=== PATIENT | female | born 1945 | race Caucasian/White ===

== ENCOUNTER → 2017-08-11 | Outpatient (CLI) | payer MEDICARE ==
[~2017-08-11] MED LIST: ASPI325 PO; LISI20 PO; LISI5 PO; METO100ER PO; METO50ER PO; Tambocor100 MG PO; WARF4 PO; WARF6; WARF7.5 PO; [UNRECOGNIZED DRUG - OTHER]
== END | disposition home or self-care (01) ==
LOC: LAB SHORT 07:47 → PLD 07:47
DX: D18.01 Hemangioma of skin and subcutaneous tissue (principal)
CPT/HCPCS: 88305

== ENCOUNTER 2017-10-03 10:33 | Emergency (ER) | payer MEDICARE ==
[~2017-10-03] VITALS: Ht 165.1 cm; Wt 76.2 kg
[2017-10-03] MEDS ORDERED: LISI20 PO (10:52)
[2017-10-03] MEDS ORDERED: METO100ER PO (10:52)
[2017-10-03] MEDS ORDERED: WARF6 PO (10:53)
[2017-10-03] MEDS ORDERED: Flecainide Ace150 MG PO (10:53)
== END 2017-10-03 12:54 | disposition home or self-care (01) ==
LOC: ER 10:33
DX: R13.10 Dysphagia, unspecified (principal); I48.91 Unspecified atrial fibrillation; Z91.013 Allergy to seafood; Z91.09 Other allergy status, other than to drugs and biological substances; Z79.899 Other long term (current) drug therapy; Z79.01 Long term (current) use of anticoagulants
CPT/HCPCS: 74220

== ENCOUNTER → 2019-01-05 | Outpatient (CLI) | payer MEDICARE ==
[~2019-01-05] MED LIST changes: +Flecainide Ace150 MG PO; +WARF6 PO
== END | disposition home or self-care (01) ==
LOC: PLD 10:08 → LAB SHORT 10:08
DX: D48.5 Neoplasm of uncertain behavior of skin (principal)
CPT/HCPCS: 88305

== ENCOUNTER → 2019-01-20 | Outpatient (CLI) | payer MEDICARE | END | disposition home or self-care (01) | LOC: PLD 09:13 → LAB SHORT 09:13 | DX: C44.310 Basal cell carcinoma of skin of unspecified parts of face (principal) | CPT/HCPCS: 88305 ==

== ENCOUNTER 2019-09-16 09:54 | Emergency (ER) | payer MEDICARE ==
[~2019-09-16] VITALS: Ht 165.1 cm; Wt 68.0 kg
[2019-09-16 10:53] LABS: BASOPHILS ABSOLUTE AUTO 0.06 K/mm3 (0.00-0.23); BASOPHILS PERCENT AUTO 0 % (0-2); EOSINOPHILS PERCENT AUTO 1 % (0-6); Hematocrit 40.8 % (33.0-51.0); Hemoglobin 13.4 g/dL (11.5-16.0); IMMATURE GRAN ABSOLUTE AUTO 0.09 K/mm3 (0.00-0.10); IMMATURE GRAN PERCENT AUTO 1 % (0-1); LYMPHOCYTES ABSOLUTE AUTO 1.16 K/mm3 (0.84-5.20); LYMPHOCYTES PERCENT AUTO 6 % (21-46); MONOCYTES ABSOLUTE AUTO 0.74 K/mm3 (0.16-1.47); MONOCYTES PERCENT AUTO 4 % (4-13); Mean Corpuscular HGB 30.7 pg (26.0-34.0); Mean Corpuscular HGB Conc 32.8 g/dL (31.5-36.5); Mean Corpuscular Volume 93 fL (80-100); Mean Platelet Volume 10.9 fL (9.1-12.4); NEUTROPHILS PERCENT AUTO 88 % (41-73); Platelet Count 103 K/mm3 (150-400); RDW Coefficient Variation 12.5 % (11.7-14.2); RDW Standard Deviation 42.6 fL (35.1-46.3); Red Blood Cell Count 4.37 M/mm3 (3.80-5.20); White Blood Cell Count 18.25 K/mm3 (4.00-11.30)
[2019-09-16 11:04] LABS: Alanine Aminotransfer (ALT/SGP 39 U/L (12-78); Albumin, Blood 3.5 g/dL (3.4-5.0); Albumin/Globulin Ratio 0.9 (0.8-1.8); Alk Phos 87 U/L (50-136); Anion Gap 6 mmol/L (6-16); Aspartate Aminotrans (AST/SGOT 43 U/L (12-37); Bilirubin, Total 1.2 mg/dL (0.1-1.0); Blood Urea Nitrogen 16 mg/dL (8-24); Bun/Creatinine Ratio 25.6 (12.0-20.0); CO2, Blood 26 mmol/L (21-32); Calcium, Blood 8.9 mg/dL (8.5-10.1); Chloride, Blood 110 mmol/L (98-108); Creatinine, Blood 0.62 mg/dL (0.40-1.00); Globulin, Blood 3.7 g/dL (2.2-4.0); Glomerular Filtration Rate >60 (60-); Glucose, Blood 106 mg/dL (70-99); Potassium, Blood 3.9 mmol/L (3.5-5.5); Sodium, Blood 142 mmol/L (136-145); Total Protein, Blood 7.2 g/dL (6.4-8.2)
[2019-09-16 11:53] LABS: International Normalized Ratio 2.17; Prothrombin Time Results 22.2 Sec (9.7-11.5)
[2019-09-16] MEDS ORDERED: BENZ100A PO (13:06)
[2019-09-16] MEDS ORDERED: ALBU90OI INH (13:06)
== END 2019-09-16 13:40 | disposition home or self-care (01) ==
LOC: ER 09:54
PROVIDERS: Emergency Medicine
DX: R05 Cough (principal); R06.02 Shortness of breath; I48.91 Unspecified atrial fibrillation; I10 Essential (primary) hypertension; Z91.013 Allergy to seafood; Z91.09 Other allergy status, other than to drugs and biological substances; Z79.899 Other long term (current) drug therapy; Z79.01 Long term (current) use of anticoagulants
CPT/HCPCS: 36415; 71046; 71250; 80053; 83880; 84484; 85025; 85610; 85730; 93005; 93010; 99285-25

== ENCOUNTER 2021-05-01 09:54 | Day surgery (SDC) | payer MEDICARE ==
[~2021-05-01] VITALS: Ht 162.6 cm; Wt 64.0 kg
[~2021-05-01 09:54] MED LIST changes: +ALBU90OI INH; +BENZ100A PO
[2021-05-01] MEDS ORDERED: SPIR25 PO (10:24)
--- NOTE | 2021-05-01 13:15 | NUR ---
AFTER PATIENT WAS INTERVEIWED BY DR. GUEVARA THE PATIENT WAS RESCHEDULED FOR FRIDAY A.M. 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 PRESCRIPTION WAS FAXED TO [facility] BY MARSHA CANDELARIO RN. PATIENTS PIV WAS REMOVED FROM THE LEFT AC AND PRESSURE DRESSING APPLIED. PATIENT GATHERED ALL BELONGINGS AND WAS DISCHARGED HOME AND WILL RETURN ON FRIDAY @ 0700.
== END 2021-05-01 22:40 | disposition home or self-care (01) ==
LOC: MHTC 09:54
DX: Z53.8 Procedure and treatment not carried out for other reasons (principal); I48.20 Chronic atrial fibrillation, unspecified; I10 Essential (primary) hypertension; I48.0 Paroxysmal atrial fibrillation; R06.02 Shortness of breath; I49.5 Sick sinus syndrome
CPT/HCPCS: J1644; J7030; J7050

== ENCOUNTER 2021-05-03 07:20 | Day surgery (SDC) | payer MEDICARE ==
[~2021-05-03 07:20] MED LIST changes: +SPIR25 PO
--- NOTE | 2021-05-03 08:59 | NUR ---
PT BACK TO RECOVERY ROOM VIA RECLINER AFTER PROCEDURE. DROWSY, BUT ROUSES TO VERBAL STIMULI. VSS. RIGHT RADIAL SITE WITH SPLINT AND TR BAND IN PLACE. NO BLEEDING OR SWELLING AT SITE. CALL LIGHT IN REACH.
--- NOTE | 2021-05-03 10:19 | NUR ---
PT CONTINUES TO SLEEP, CALL LIGHT IN REACH. VSS.
--- NOTE | 2021-05-03 11:35 | NUR ---
DR GUEVARA AT BEDSIDE SPEAKING WITH PT AND SPOUSE ABOUT PROCEDURE RESULTS AND PLAN OF CARE.
--- NOTE | 2021-05-03 12:00 | NUR ---
IV DC'D, CATH INTACT. PT GIVEN DC INSTRUCTIONS, RX'S. VERBALIZED UNDERSTANDING. RIGHT RADIAL SITE SOFT, AND WITHOUT BLEEDING OR SWELLING. SPLINT AND SLING IN PLACE. PT OUT TO CAR VIA WHEELCHAIR.
== END 2021-05-03 12:00 | disposition home or self-care (01) ==
LOC: MHTC NI → MHTC 07:20 → EDSTATUS 07:23 → MHTC 07:25
DX: I25.118 Atherosclerotic heart disease of native coronary artery with other forms of angina pectoris (principal); I48.20 Chronic atrial fibrillation, unspecified; I48.0 Paroxysmal atrial fibrillation; I11.0 Hypertensive heart disease with heart failure; I50.30 Unspecified diastolic (congestive) heart failure; I49.5 Sick sinus syndrome; I77.1 Stricture of artery; J44.9 Chronic obstructive pulmonary disease, unspecified; Z88.8 Allergy status to other drugs, medicaments and biological substances; Z95.0 Presence of cardiac pacemaker; Z79.01 Long term (current) use of anticoagulants
CPT/HCPCS: 76937; 93288; 93454; 99152; 99153; C1769; C1894; J0461; J1200; J1720; J2250; J2370; J3010; J7030; Q9967

== ENCOUNTER 2025-03-29 07:29 | Inpatient (IN) | payer OTHER ==
[~2025-03-29] VITALS: Ht 160 cm; Wt 69.7 kg
[2025-03-29] MEDS ORDERED: NS 1,000 ML IV SCH (07:45)
[2025-03-29 08:20] LABS: Hematocrit 30.5 % (33.0-51.0); Hemoglobin 9.6 g/dL (11.5-16.0); Mean Corpuscular HGB Conc 31.5 g/dL (31.5-36.5); Mean Corpuscular Volume 88 fL (80-100); NRBC ABSOLUTE 0.00 K/mm3 (0.00-0.02); NRBC Auto 0.0 /100 WBC (0.0-0.2); Platelet Count 87 K/mm3 (150-400); RDW Coefficient Variation 16.5 % (11.7-14.2); RDW Standard Deviation 51.4 fL (35.1-46.3)
[2025-03-29 08:30] LABS: Prothrombin Time Results 32.0 Sec (9.7-11.5)
[2025-03-29 08:33] LABS: Alanine Aminotransfer (ALT/SGP 22.0 U/L (12-78); Albumin, Blood 3.0 g/dL (3.4-5.0); Albumin/Globulin Ratio 1.2 (0.8-1.8); Anion Gap 9.0 mmol/L (3-11); Aspartate Aminotrans (AST/SGOT 44.0 U/L (12-37); Bilirubin, Total 1.7 mg/dL (0.1-1.0); Blood Urea Nitrogen 23.0 mg/dL (8-24); CO2, Blood 27.0 mmol/L (21-32); Calcium, Blood 9.4 mg/dL (8.5-10.1); Chloride, Blood 106.0 mmol/L (98-108); Creatinine, Blood 1.65 mg/dL (0.40-1.00); Globulin, Blood 2.5 g/dL (2.2-4.0); Glucose, Blood 96.0 mg/dL (70-99); Potassium, Blood 4.3 mmol/L (3.5-5.5); Sodium, Blood 138.0 mmol/L (136-145); Total Protein, Blood 5.5 g/dL (6.4-8.2)
[2025-03-29 09:10] LABS: BASOPHILS ABSOLUTE MAN 0.05 K/mm3 (0.00-0.23); BASOPHILS PERCENT MAN 1 % (0-2); EOSINOPHILS ABSOLUTE MAN 0.10 K/mm3 (0.00-0.68); EOSINOPHILS PERCENT MAN 2 % (0-6); LYMPHOCYTES ABSOLUTE MAN 1.56 K/mm3 (0.84-5.20); LYMPHOCYTES PERCENT MAN 31 % (21-46); MONOCYTES ABSOLUTE MAN 0.40 K/mm3 (0.16-1.47); MONOCYTES PERCENT MAN 8 % (4-13); NEUTROPHILS ABSOLUTE MAN 2.93 K/mm3 (1.96-9.15); SEG NEUTROPHILS PERCENT MAN 58 % (41-73)
[2025-03-29] MEDS ORDERED: FLU VACC TS2025(65UP)/MF59C/PF 45 MCG/0.5 ML SYRINGE IM SCH (11:00)
[2025-03-29] MEDS ORDERED: TORSE20 PO (12:41)
[2025-03-29] MEDS ORDERED: JANTOVEN6 MG PO (12:42)
[2025-03-29] MEDS ORDERED: KLOR-CON 1010 ME9 PO (12:43)
[2025-03-29] MEDS ORDERED: Vitamin D1000 UNI1 PO (12:44)
[2025-03-29 17:05] VITALS: BP 100/54
[2025-03-29] MEDS ORDERED: Ondansetron HCl 2 MG / ML 2ML Vial IV PRN (17:40)
[2025-03-29 17:59] LABS: Hematocrit 30.3 % (33.0-51.0); Hemoglobin 9.5 g/dL (11.5-16.0)
--- NOTE | 2025-03-29 18:05 | NUR ---
Spiritual Care Consult and Pt. request Pt. is awake in bed but displays evidence of pain nausea. SPouse is at bedside and welcomes my visit. Facilitate introductions and a short life review. As the lab had someone waiting to draw blood, this chpalain kept the visit short. Prayed kasey newsome Pt. and confirmed that this roof foreman would return in the morning. Pt. and spouse verbalized gratitude for the spiritual care visit.
[2025-03-29 18:09] VITALS: BP 104/52
[2025-03-29 18:45] LABS: Ferritin, Serum 156.0 ng/mL (8-252); Thyroid Stimulating Hormone 5.23 uIU/mL (0.360-4.800); Total Iron Binding Capacity 264.0 ug/dL (250-450)
--- NOTE | 2025-03-29 19:16 | NUR ---
SHIFT SUMMARY ASSUMED CARE AT APPROX 1230 FROM ED. A/O X4, PLEASANT AND COOPERATIVE WITH CARE, ABLE TO COMMUNICATE NEEDS, USES CALL LIGHT APPROPRIATELY, SHAHBAZ AT BEDSIDE. PACEMAKER, A/V PACED, HR 70, PT DENIES CHEST PAIN OR PRESSURE BUT DOES ENDORSE LEFT SHOULDER PAIN THAT PT STATES STARTED AFTER ARMS WERE RAISED ABOVE HEAD FOR CXR. SPO2 >92% ON 2L O2 VIA NC, 2L IS BASELINE, PT ENDORSES MILD SOB AT REST, CT SHOWED RIGHT PLEURAL EFFUSION AND ACITES. PT ENDORSES INCREASED ABD GIRTH THAT HAS WORSENED OVER PAST SEVERAL DAYS, ABD IS MILDLY TENDER TO LIGHT PALPATION, HAD BM THIS SHIFT, PT ENDORSES MILD NAUSEA. PUREWICK IN PLACE AND DRAINING TO LIGHT SUCTION, 1 P ASSIST TO BEDSIDE COMMODE. PT REPORTS CHRONIC DIFFICULTY SWALLOWING FOLLOWING PREVIOUS ESOPHEGEAL PROCEDURE, PT REPORTS DIFFICULTY SWALLOWING IS INTERMITTENT AND DOES NOT IMPACT ABILITY TO EAT OR VOMIT. MD ESCALONA NOTIFIED OF SHOULDER PAIN AND NAUSEA AT APPROX 1730, NEW ORDERS RECEIVED.
[2025-03-29 20:32] VITALS: BP 118/51
[2025-03-30] VITALS (7 sets, daily range): BP systolic 99–115; BP diastolic 50–61
[2025-03-30 05:50] LABS: Prothrombin Time Results 35.2 Sec (9.7-11.5)
--- NOTE | 2025-03-30 06:12 | NUR ---
SHIFT SUMMARY PATIENT ALERT AND ORIENTED X4. MEDICATED PER EMAR FOR PAIN. PATIENT REPORTED BEING NAUSEATED BUT DENIED WANTING MEDICATION TO HELP. ON HOME DOSE O2 WITH SPO2 > 90%. VITAL SIGNS STABLE. NO ACUTE ISSUES NOTED OVERNIGHT. WILL CONTINUE TO MONITOR. CALL LIGHT WITHIN REACH.
[2025-03-30] MEDS ORDERED: Potassium Chloride 10 Meq Tablet SA PO SCH (09:00)
[2025-03-30] MEDS ORDERED: Cholecalciferol 1000 Unit Tablet (=25MCG) PO SCH (09:00)
[2025-03-30 10:18] LABS: Hematocrit 31.3 % (33.0-51.0); Hemoglobin 9.6 g/dL (11.5-16.0); Mean Corpuscular HGB Conc 30.7 g/dL (31.5-36.5); Mean Corpuscular Volume 88 fL (80-100); NRBC ABSOLUTE 0.02 K/mm3 (0.00-0.02); NRBC Auto 0.3 /100 WBC (0.0-0.2); Platelet Count 92 K/mm3 (150-400); RDW Coefficient Variation 16.8 % (11.7-14.2); RDW Standard Deviation 53.8 fL (35.1-46.3)
[2025-03-30 10:29] LABS: Albumin, Blood 3.2 g/dL (3.4-5.0); Anion Gap 10 mmol/L (3-11); Blood Urea Nitrogen 27 mg/dL (8-24); CO2, Blood 24 mmol/L (21-32); Calcium, Blood 8.5 mg/dL (8.5-10.1); Chloride, Blood 105 mmol/L (98-108); Creatinine, Blood 1.71 mg/dL (0.40-1.00); Glucose, Blood 93 mg/dL (70-99); Magnesium, Blood 1.4 mg/dL (1.6-2.4); Phosphorus, Blood 2.9 mg/dL (2.5-4.9); Potassium, Blood 3.8 mmol/L (3.5-5.5); Sodium, Blood 135 mmol/L (136-145)
--- NOTE | 2025-03-30 10:46 | NUR ---
Nursing PCU Dayshift Assumed care at 0700. A&O x4, cooperative with care. C/O generalized aches/pain w/ activity, none at rest. Skin fragile but intact w/out breakdown. 1 assist to ambulate, generalized weakness. AV paced, SBP 110 prior to AM meds, no C/O chest pain/ pressure, no noted edema. LS CTA, dim in lower lobes, mild dyspnea w/ exertion, O2 sat upper 90s on 1L O2, continuous o2 monitoring. ABD SNT, BT+, voiding without difficulty, purewick in place d/t exertional dyspnea. PIV x1, SL. at bedside t/o AM, assisting with ADLs. Awaiting rounding from PMD. Worked with OT, tolerated well. No S/S of acute distress at this time. Call light in reach. Monitor for changes.
--- NOTE | 2025-03-30 11:53 | NUR ---
Dr. Hayes here rounding on the patient; pt's is at the bedside. pt reports very little urine output. Only one void, documented as unmeasured in chart. Dr. hayes states need to get another bladder scan, and also plan to change diuretic to bumex for better diuresis. Weight loss noted 0.25 kg since admission.
--- NOTE | 2025-03-30 11:55 | NUR ---
Spiritual Care Visit. Pt. is awake in bed. SPouse Nitin is at bedside and welcomes my visit. Faciltated an update. Pt. verbalized concern that she might be discharged too soon. Listened with empathy and a calming presence. Seek to normalize the Pt. experience. Pt. can verbalize her concerns and PSouse is very supportive. Prayed with the Pt. Pt. and spouse verbalize gratitude for the [facility] visit.
--- NOTE | 2025-03-30 15:25 | NUR ---
PT HAS VERBALIZED WISHING TO COMPLETE A POLST. PC RN AT BEDSIDE WITH PT NOW, PROVIDING INFORMATION.
[2025-03-30] MEDS ORDERED: Sod Ferric Gluc Complx/Sucrose 125 MG in NS 100 ML IV SCH (16:00)
--- NOTE | 2025-03-30 17:04 | NUR ---
NEW POLST FORM FILLED OUT TO REFLECT DNR/SELECTIVE MEDICAL INTERVENTIONS. POLST PENDING PROVIDER SIGNATURE. PROVIDER AWARE AND PLANS TO SIGN DURING ROUNDS TOMORROW 03/31/25. EXTENSIVE EDUCATION ON ALL THREE LEVELS OF MEDICAL INTERVENTIONS PROVIDED. BOTH PT AND SPOUSE ACTIVELY ENGAUGED IN CONVERSATION AND ASKED CLARIFYING QUESTIONS. PREVIOUS POLST FROM 2021 TO BE VOIDED ONCE NEW POLST IS SIGNED. CONTINUE WITH CURRENT PLAN OF CARE.
--- NOTE | 2025-03-30 17:56 | NUR ---
DAYSHIFT SUMMARY PT HAS DONE FAIRLY WELL T/O SHIFT WITHOUT SIGNIFICANT CHANGES. SEEN BY PMD, NEW ORDERS RECIEVED. CHANGED DIURETIC FROM LASIX TO BUMEX. 1500 mL FLUID RESTRICTION SET. TOLERATED CHAIR FOR SHIRT PERIOD OF TIME THIS AFTERNOON, TIRED QUICKLY. TRANSFERRED BACK TO BED AFTER BATH COMPLETED. PT AND S/O DENY ANY QUESTIONS ABOUT CURRENT PLAN OF CARE. CALL LIGHT IN REACH, MONITOR UNTIL REPORT GIVEN TO ANUM LEYVA.
[2025-03-31] VITALS (8 sets, daily range): BP systolic 95–117; BP diastolic 51–58
[2025-03-31 01:40] LABS: Source, Urine Clean Catch
[2025-03-31 01:47] LABS: Glucose Qualitative, Urine Neg (Neg); Ketones, Urine Neg (Neg); Leukocyte Esterase, Urine 1+ (Neg); Protein, Urine 2+ (Neg); Specific Gravity, Urine 1.020 (1.003-1.022); Urobilinogen, Urine 1+ (Normal)
[2025-03-31 01:56] LABS: Bilirubin, Urine 1+ (Neg); Color, Urine Yellow (P-Yellow)
[2025-03-31 01:57] LABS: Red Blood Cells, Urine 0-2 /hpf (0-2); White Blood Cells, Urine 0-2 /hpf (0-5)
[2025-03-31 04:38] LABS: Hematocrit 28.0 % (33.0-51.0); Hemoglobin 8.7 g/dL (11.5-16.0); Mean Corpuscular HGB Conc 31.1 g/dL (31.5-36.5); Mean Corpuscular Volume 88 fL (80-100); NRBC ABSOLUTE 0.05 K/mm3 (0.00-0.02); NRBC Auto 0.9 /100 WBC (0.0-0.2); Platelet Count 96 K/mm3 (150-400); RDW Coefficient Variation 17.2 % (11.7-14.2); RDW Standard Deviation 53.5 fL (35.1-46.3)
[2025-03-31 05:13] LABS: Alanine Aminotransfer (ALT/SGP 20.0 U/L (12-78); Albumin, Blood 3.3 g/dL (3.4-5.0); Albumin/Globulin Ratio 1.6 (0.8-1.8); Anion Gap 11.0 mmol/L (3-11); Aspartate Aminotrans (AST/SGOT 42.0 U/L (12-37); Bilirubin, Total 1.6 mg/dL (0.1-1.0); Blood Urea Nitrogen 37.0 mg/dL (8-24); CO2, Blood 22.0 mmol/L (21-32); Calcium, Blood 8.7 mg/dL (8.5-10.1); Chloride, Blood 104.0 mmol/L (98-108); Creatinine, Blood 2.12 mg/dL (0.40-1.00); Globulin, Blood 2.1 g/dL (2.2-4.0); Glucose, Blood 94.0 mg/dL (70-99); Magnesium, Blood 1.7 mg/dL (1.6-2.4); Potassium, Blood 4.3 mmol/L (3.5-5.5); Sodium, Blood 133.0 mmol/L (136-145); Thyroid Stimulating Hormone 4.28 uIU/mL (0.360-4.800); Total Protein, Blood 5.4 g/dL (6.4-8.2)
--- NOTE | 2025-03-31 06:54 | NUR ---
SHIFT SUMMARY PATIENT ALERT AND ORINETED X4. MEDICATED PER EMAR FOR NAUSEA. PATIENT SHORT OF BREATH EVEN AT REST. ON 1 LITER O2 VIA NC. VITAL SIGNS STABLE. WILL CONTINUE TO MONITOR. CALL LIGHT WITHIN REACH.
[2025-03-31 08:56] LABS: Prothrombin Time Results 26.7 Sec (9.7-11.5)
--- NOTE | 2025-03-31 18:45 | NUR ---
End of Shift Pt A&O x4. BP soft, VSS. Spo2 > 92% on 1L NC. Pt w/ desat to 80s on RA w/ pt reporting "I took it off. I want a break from it" when nurse to rm & encouraging pt to place NC back on. Pt then agreeable. Spo2 > 92% w/ 1L NC. Pt SOB w/ minimal activity. Monitor showing paced rhythm, HR 70. Pt up to chair for meals. Pt abd distended & firm w/ pt spouse reporting abd continuing to increase in size. Pt anticipating paracentesis tomorrow. Pt complying w/ 1.5L fluid restriction. Pt w/ minimal urine output. aware.
[2025-03-31] MEDS ORDERED: Lactobacil 2-S.Thermo-Bifido 1 1 Cap PO SCH (21:00)
[2025-04-01] VITALS (16 sets, daily range): BP systolic 91–114; BP diastolic 43–67
[2025-04-01 04:17] LABS: Hematocrit 27.3 % (33.0-51.0); Hemoglobin 8.7 g/dL (11.5-16.0); Mean Corpuscular HGB Conc 31.9 g/dL (31.5-36.5); Mean Corpuscular Volume 87 fL (80-100); NRBC ABSOLUTE 0.07 K/mm3 (0.00-0.02); NRBC Auto 1.0 /100 WBC (0.0-0.2); Platelet Count 102 K/mm3 (150-400); RDW Coefficient Variation 17.8 % (11.7-14.2); RDW Standard Deviation 54.0 fL (35.1-46.3)
[2025-04-01 04:30] LABS: Prothrombin Time Results 21.7 Sec (9.7-11.5)
[2025-04-01 04:36] LABS: Albumin, Blood 3.2 g/dL (3.4-5.0); Anion Gap 12 mmol/L (3-11); Blood Urea Nitrogen 46 mg/dL (8-24); CO2, Blood 21 mmol/L (21-32); Calcium, Blood 8.7 mg/dL (8.5-10.1); Chloride, Blood 102 mmol/L (98-108); Creatinine, Blood 2.41 mg/dL (0.40-1.00); Glucose, Blood 102 mg/dL (70-99); Phosphorus, Blood 3.7 mg/dL (2.5-4.9); Potassium, Blood 4.5 mmol/L (3.5-5.5); Sodium, Blood 130 mmol/L (136-145)
--- NOTE | 2025-04-01 06:52 | NUR ---
SHIFT SUMMARY PATIENT ALERT AND ORIENTED X4. MEDICATED PER EMAR FOR NAUSEA. ON 1 LITER O2 VIA NC WITH SPO2 >90%, SHORT OF BREATH AT REST. VITAL SIGNS STABLE. NO ACUTE ISSUES NOTED OVERNIGHT. WILL CONTINUE TO MONITOR. CALL LIGHT WITHIN REACH.
[2025-04-01] MEDS ORDERED: Ondansetron HCl 2 MG / ML 2ML Vial IV PRN (12:15)
[2025-04-01] MEDS ORDERED: FentaNYL Citrate 50 MCG/ML 2 ML Injection IV PRN (15:00)
--- NOTE | 2025-04-01 16:34 | NUR ---
SHIFT SUMMARY PATIENT IS ALERT AND ORIENTED, ABLE TO FOLLOW COMMANDS AND MAKE NEEDS KNOWN. PATIENT HAS BEEN SIGNIFICANTLY DROWSY THIS SHIFT. TELE IN PLACE, DUAL PACED, HR 70, SOFT BPs WITH MAP LESS THAB 65 THIS SHIFT, PROVIDER NOTIFIED. PATIENT DENIES CHEST PAIN OR PRESSURE. SPO2 >90% ON 1L VIA NC, PROFOUND SHORTNESS OF BREATH WITH EXERTION. PATIENT IS PROFOUNDLY WEAK IN ALL EXTREMITIES BILATERALLY. ABDOMEN IS MODERATELY DISTENDED AND FIRM TO PALPATION, NAUSEA AND VOMITING THIS SHIFT, PROVIDER NOTIFIED, NEW ORDERS RECEIVED. MINIMAL URINE OUTPUT THIS SHIFT, BLADDER SCAN PERFORMED, <100ML PRESENT IN BLADDER. BOWEL MOVEMENT THIS SHIFT. PATIENT IS A 1P SBA WITH A FWW TO BSC. PATIENT IS UP IN BED, BED IN LOWEST POSITION, PATIENT CALLS APPROPRIATELY, CALL LIGHT WITHIN REACH.
[2025-04-02 00:23] VITALS: BP 100/58
[2025-04-02 03:31] VITALS: BP 103/63
[2025-04-02 03:58] LABS: Hematocrit 31.5 % (33.0-51.0); Hemoglobin 10.0 g/dL (11.5-16.0); Mean Corpuscular HGB Conc 31.7 g/dL (31.5-36.5); Mean Corpuscular Volume 88 fL (80-100); NRBC ABSOLUTE 0.20 K/mm3 (0.00-0.02); NRBC Auto 1.7 /100 WBC (0.0-0.2); Platelet Count 128 K/mm3 (150-400); RDW Coefficient Variation 19.1 % (11.7-14.2); RDW Standard Deviation 55.8 fL (35.1-46.3)
[2025-04-02 04:25] LABS: Alanine Aminotransfer (ALT/SGP 20.0 U/L (12-78); Albumin, Blood 3.3 g/dL (3.4-5.0); Albumin/Globulin Ratio 1.5 (0.8-1.8); Anion Gap 16.0 mmol/L (3-11); Aspartate Aminotrans (AST/SGOT 51.0 U/L (12-37); Bilirubin, Total 2.2 mg/dL (0.1-1.0); Blood Urea Nitrogen 58.0 mg/dL (8-24); CO2, Blood 18.0 mmol/L (21-32); Calcium, Blood 9.0 mg/dL (8.5-10.1); Chloride, Blood 100.0 mmol/L (98-108); Creatinine, Blood 3.27 mg/dL (0.40-1.00); Globulin, Blood 2.2 g/dL (2.2-4.0); Glucose, Blood 105.0 mg/dL (70-99); Magnesium, Blood 2.1 mg/dL (1.6-2.4); Phosphorus, Blood 4.5 mg/dL (2.5-4.9); Potassium, Blood 5.1 mmol/L (3.5-5.5); Sodium, Blood 129.0 mmol/L (136-145); Total Protein, Blood 5.5 g/dL (6.4-8.2)
--- NOTE | 2025-04-02 06:18 | NUR ---
SHIFT SUMMARY A/OX4, VERBALIZES NEEDS, FOLLOWS COMMANDS. TREATED FOR ABDOMINAL PAIN PER EMAR, WELL N&V AT START OF SHIFT. ONE EPISODE OF VOMITING, MOSTLY MUCOUS. SHE IS VERY WEAK. SHE IS ON RA W/ SATS ABOVE 92%, 1L NC USED PRN. SOB WITH EXERTION OF ANY KIND. ON CONTINUOUS CARDIAC TELEMETRY, DUAL PACED, HR 70. DENIES CHEST PAIN/PRESSURE. ONE UNMEASURED VOID AT THE BEGINNING OF SHIFT. BLADDER SCANNED WITH ONLY 69ML RETAINED AT THE END OF SHIFT. NO ACUTE EVENTS OVERNIGHT.
[2025-04-02 07:31] VITALS: BP 92/53
[2025-04-02] MEDS ORDERED: Torsemide 20 MG TAB PO SCH (09:00)
[2025-04-02 11:01] VITALS: BP 96/46
[2025-04-02] MEDS ORDERED: Atropine Sulfate 1% Opth Soln 2ML BTL SL PRN (12:15)
[2025-04-02] MEDS ORDERED: Morphine Sulfate 20 MG/1ML 1 ML Oral Syringe SL PRN (12:15)
--- NOTE | 2025-04-02 13:30 | NUR ---
PT SUMMARY: PT WAS COOPERATIVE, ALERT, ORIENTED BUT IS VERY WEAK. PT REFUSED HER MEALS. PT WAS PLACED ON PALLATIVE CARE AND PALLATIVE NURSE AND DOCTOR CAME IN AND TALKED TO THE FAMILY. BEDBATH WAS GIVEN AND BECAME NAUSEATED AND HAD VOMITED. PT WAS MEDICATED PER EMAR. PT WAS SCHEDULED TO BE MOVED TO ROOM 362. WILL ENDORSE TO NURSE ON MEDICAL FLOOR.
--- NOTE | 2025-04-02 13:38 | NUR ---
ROUNDED ON PATIENT WITH DR. ESCALONA. PATIENT IS REQUESTING TO TRANSITION DIRECTION OF CARE. SHE IS ELECTING FOR COMFORT MEASURES ONLY. PATIENTS FAMILY IS AT BEDSIDE. ORDERS PLACED.
--- NOTE | 2025-04-02 15:17 | NUR ---
TRANSFER NOTE PT IS A PCU TRANSFER. PT IN ROOM 362. THIS RN GOT REPORT FROM PCU. CAMPAIGN MARKETING MANAGER REPORTED PT DIFFICULTY SWALLOWING. PT A&OX4. PT DROWSY AND WAKES TO VERBAL STIMULI. PT REPORTS PAIN. PAIN MANAGED PER EMAR. PT REPORTS FENT MADE HER THROW UP EARLIER. PT HAS LITTLE OUTPUT. ATTENDS ON CHANGED PRN. COMFORT CART IN ROOM VISITOR IN ROOM. PT IN BED, BED IN LOWEST POSITION, LOCKED, CALL LIGHT IN REACH. PT RESTING IN BED.
[2025-04-02] MEDS ORDERED: Ondansetron 4 MG SoluTab MM PRN (16:45)
[2025-04-02] MEDS ORDERED: FentaNYL Citrate 50 MCG/ML 2 ML Injection IV PRN (19:35)
--- NOTE | 2025-04-02 19:35 | NUR ---
1933 THIS RN CAME ON SHIFT AND INTRODUCED HERSELF AND ROLE TO PT, HER AND HER 2 DAUGHTERS. DURING SHIFT CHANGE, DAY RN REPORTED THAT PT WAS UP TO ROXINOL 20MG Q1 WHICH DIDN'T SEEM HELPFUL. FAMILY REPORTING PT HAS BEEN INCREASINGLY RESTLESS, HITTING AT HER LEGS AND MOANING. THIS RN REACHED OUT TO HOSPITALIST, DR. CLARK TO REQUEST SOMETHING DIFFERENT FOR PT'S PAIN. RECEIVED ORDER FOR FENTANYL 25-50MCG Q3 PRN. 1943 THIS RN ADMINISTERED 25MCG FENTANYL IV. WITHIN 5 MINUTES PT APPEARED RELAXED, SLEEPING COMFORTABLY IN BED. 2004 AUTUMN GRULLON WAS ALERTED BY PT'S DAUGHTER THAT PT MAY HAVE PASSED. REQUESTED RN TO CONFIRM. THIS RN ALSO CONFIRMED THAT PT HAD PASSED. TIME OF 2009. DEFENSIVE DRIVING INSTRUCTOR NOTIFIED.
--- NOTE | 2025-04-02 19:55 | NUR ---
SHIFT SUMMARY PT WAKES TO VERBAL STIMULI. PT HEP C POSITIVE. PT ADMITTED DUE TO ACUTE ON CHRONIC CHF. PT A PCU TRANSFER. PT Q2 TURNED. PT HAS LITTLE OUTPUT, ATTENDS ON CHANGED PRN. VISITORS IN ROOM. ATIVAN GIVEN FOR ANXIETY. PT REPORTS PAIN, PAIN MANAGED PAIN PER EMAR. ROXANOL GIVEN FOR PAIN, ROXANOL INCREASED, 20MG GIVEN LAST. ROXANOL NOT BEING AFFECTIVE. NOTIFIED NIGHT RN, "NEEDS SOMETHING STRONGER." PT ON BEDREST. PT IN BED, BED IN LOWEST POSITION, LOCKED, CALL LIGHT IN REACH.
--- NOTE | 2025-04-02 20:15 | NUR ---
Alerted and requested by daughter to confirm that patient had just past as she could not see any more breaths. Entered room. Both daughters were in the room. Nitin had just returned from a walk. Visually, pt's face is cyanotic and patient is breathless with zero respirations noted. Auscultated apical pulse and checked radial pulse for one whole minute w/ none felt/heard. Asked second RN, Naila Potter, to confirm which she agreed. TOD @ 2009. saw sharpenerAUTUMN Petersen notified who informed Sneha Brown, Nursing Drill Operator. Second saw sharpener Leila Aguirre will notify Dr. Espino. Family encouraged to bring personal belongings and anything of value home. [facility] is home of choice.
[2025-04-02 21:53] LABS: COMPLEMENT COMPONENT 3 61 mg/dL (90-180); COMPLEMENT COMPONENT 4 17 mg/dL (10-40)
--- NOTE | 2025-04-02 21:53 | NUR ---
DR. CLARK NOTIFIED OF PT'S TIME OF 2010 TONIGHT.
== END 2025-04-02 20:10 | DRG 291 ==
LOC: ER 07:29 → PCU 10:58 → MEDS 04-02 14:39
PROVIDERS: Emergency Medicine; Hospitalist; ADMIT Internal Medicine
PROC: 30233J1 Transfusion of Nonautologous Serum Albumin into Peripheral Vein, Percutaneous Approach (ICD-10-PCS; principal; 2025-03-29)
DX: I13.0 Hypertensive heart and chronic kidney disease with heart failure and stage 1 through stage 4 chronic kidney disease, or unspecified chronic kidney disease (principal); I50.43 Acute on chronic combined systolic (congestive) and diastolic (congestive) heart failure; K76.6 Portal hypertension; J96.11 Chronic respiratory failure with hypoxia; N17.9 Acute kidney failure, unspecified; I48.19 Other persistent atrial fibrillation; R18.8 Other ascites; Z51.5 Encounter for palliative care; Z66 Do not resuscitate; K74.69 Other cirrhosis of liver; B19.20 Unspecified viral hepatitis C without hepatic coma; D50.9 Iron deficiency anemia, unspecified; I49.5 Sick sinus syndrome; K21.9 Gastro-esophageal reflux disease without esophagitis; K22.0 Achalasia of cardia; J44.81 Bronchiolitis obliterans and bronchiolitis obliterans syndrome; I27.20 Pulmonary hypertension, unspecified; D69.6 Thrombocytopenia, unspecified; N18.32 Chronic kidney disease, stage 3b; R16.1 Splenomegaly, not elsewhere classified; I25.10 Atherosclerotic heart disease of native coronary artery without angina pectoris; I07.1 Rheumatic tricuspid insufficiency; G47.00 Insomnia, unspecified; E83.42 Hypomagnesemia; Z95.0 Presence of cardiac pacemaker; Z79.01 Long term (current) use of anticoagulants; Z88.8 Allergy status to other drugs, medicaments and biological substances; Z96.82 Presence of neurostimulator; Z99.81 Dependence on supplemental oxygen; Z88.5 Allergy status to narcotic agent
CPT/HCPCS: 36415; 71045; 71250; 74176; 76705; 80053; 80069; 81001; 82140; 82272; 82533; 82607; 82728; 82746; 83540; 83550; 83605; 83690; 83735; 83880; 84100; 84145; 84300; 84439; 84443; 84481; 84484; 85014; 85018; 85025; 85027; 85610; 85730; 86160; 86850; 86900; 86901; 87086; 93005; 93010; 93306; 93970; 94760; 96361; 96374; 97110; 97161; 97165; 97535; 99285-25; A6590; A9270; J1938; J2405; J2916; J3010; J7030; P9047